=== PATIENT | female | born 2000 | race Caucasian/White ===

== ENCOUNTER 2019-08-27 12:37 | Outpatient (REF) | payer OTHER, SELFPAY ==
[2019-08-29 15:07] LABS: Chlamydia Result Negative (Negative)
[2019-09-01 10:47] LABS: GC Result Negative (Negative)
== END 2019-08-27 12:57 ==
LOC: LBN 12:37
PROVIDERS: PCP Nurse Practitioner Pediatrics; Visit Provider Nurse Practitioner Women's Health
DX: Z11.3 Encounter for screening for infections with a predominantly sexual mode of transmission (principal)
CPT/HCPCS: 87491; 87591

== ENCOUNTER 2020-10-12 11:06 | Outpatient (REF) | payer OTHER, SELFPAY ==
--- NOTE | 2020-10-12 09:15 | PAPFT_PTH ---
PATIENT: Li Almazan LOC: [facility] U#:[id number] AGE/SX: 20/F ROOM: RE10/12/[address]: Yarely Cruz NP : [id number] BED: DIS: 10/12/2020 SPEC #: [id number] RECD: 10/12/20 13:05 STATUS: EMILPatrick REGilmer #: [id number] CRISTINA: 10/12/20 09:[address]: Yarely Cruz NP DEPT: FOR[facility], [facility]–1983 Cytology RECD BY: Claudia Jc ENTERED: 10/12/20 13:06 SP TYPE: PAPFT OTHR DR: JEFFY Dykes Tissues: 1 - CX/ENDOCX FOR PAP SMEARS Procedures: PAP THIN PREP/UVM Screening Comments: [id number] (CHLAMYDIA/GC)
[2020-10-13 14:24] LABS: Chlamydia Result Negative (Negative); GC Result Negative (Negative)
== END 2020-10-12 11:26 ==
LOC: LBN 11:06
PROVIDERS: PCP Nurse Practitioner Pediatrics; Visit Provider Nurse Practitioner Women's Health
DX: Z11.3 Encounter for screening for infections with a predominantly sexual mode of transmission (principal); Z12.4 Encounter for screening for malignant neoplasm of cervix
CPT/HCPCS: 87491; 87591; 88142

== ENCOUNTER 2021-02-25 11:00 | Outpatient (CLI) | payer OTHER, SELFPAY ==
--- NOTE | 2021-02-25 11:00 | RT.EKG_ITS ---
APPROVED REPORT Exam: Resting ECG Reason for Exam: tachycardia Patient Location: O HR:100 bpm ECG Measurements Heart Rate 100 AXIS NJ 119 P 78 QRSd 90 QRS 77 QT 339 T 14 QTc 438 Conclusion Sinus tachycardia...rate> 99
== END 2021-02-25 11:01 | disposition home or self-care (01) ==
LOC: DI.CARD 11:01
PROVIDERS: PCP Nurse Practitioner Pediatrics; Visit Provider Internal Medicine Cardiovascular Disease
DX: R00.0 Tachycardia, unspecified (principal)
CPT/HCPCS: 93010

== ENCOUNTER 2021-03-08 04:17 | Outpatient (CLI) | payer OTHER, SELFPAY ==
--- NOTE | 2021-03-28 09:28 | W.ZIOMONITOR ---
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 ?The patient was in normal sinus rhythm for the majority of the recording with an average heart rate of 71 bpm (44?181) ?There were no episodes of supraventricular tachycardia nor any episodes of ventricular tachycardia. ?There were rare PACs and no PVCs. ?There were no episodes of atrial fibrillation, no pauses greater than 3 seconds and no evidence of high degree heart block. ?There were 4 patient triggered events none of which were associated with arrhythmia.
== END 2021-03-08 04:18 | disposition home or self-care (01) ==
PROVIDERS: PCP Nurse Practitioner Pediatrics; Visit Provider Internal Medicine Cardiovascular Disease
DX: R00.0 Tachycardia, unspecified (principal); Z82.49 Family history of ischemic heart disease and other diseases of the circulatory system
CPT/HCPCS: 93246

== ENCOUNTER 2021-12-07 01:24 | Outpatient (CLI) | payer OTHER, SELFPAY ==
--- NOTE | 2021-12-07 14:47 | DI.US_ITS ---
APPROVED REPORT EXAM: Comprehensive 2D, Doppler, and color-flow Echocardiogram Patient Location: Out-Patient Energy Sales Consultant: Zoila Brown RDCS (AE) Indications: Tachycardia Other Information Study Quality: Excellent Conclusion Normal left ventricular wall thickness and chamber size. Estimated ejection fraction is 70%. Wall m otion is normal Normal right ventricular size and systolic function Both atria are normal in size There are no structural or hemodynamically significant valvular abnormalities Wall motion Left Ventricle The left ventricle is normal size. The left ventricular systolic function is normal. The left ventric ular ejection fraction is within the normal range. There is normal left ventricular wall thickness. T here is normal LV segmental wall motion. There is no ventricular septal defect visualized. LVEF is 70 %. Right Ventricle The right ventricle is normal size. The right ventricular systolic function is normal. The RVSP is 12 .2 mmHg. Atria The left atrium size is normal. The right atrium size is normal. The interatrial septum is intact wit h no evidence for an atrial septal defect. Aortic Valve The aortic valve is normal in structure. There is no aortic valvular stenosis. No aortic regurgitatio n is present. Mitral Valve The mitral valve is normal in structure. No evidence of mitral valve stenosis. Trace mitral regurgita tion. Tricuspid Valve The tricuspid valve is normal in structure. There is no tricuspid valve stenosis. Trace tricuspid reg urgitation. Pulmonic Valve The pulmonary valve is normal in structure. There is no pulmonic valvular stenosis. Trace pulmonic re gurgitation. Great Vessels The aortic root is normal in size. The ascending aorta is normal in size. Aortic arch is normal in ca liber. IVC is normal in size and collapses >50% with inspiration. Pericardium There is no pericardial effusion. 2D Dimensions IVSD d PLAX 0.61 cm F: 0.6-1.0 LV Vol A2C d MOD 73.2 mL LVPW d PLAX 0.63 cm F: 0.6 - 1.0 LV Vol A4C d MOD 47.5 mL LVID d PLAX 4.30 cm F: 3.8 - 5.2 LA vol/ BSA A2C s A-L 26.6 mL/m2 LVDs 2.50 cm F: 2.2 - 3.5 LA vol/ BSA A4C s A-L 13.4 mL/m2 Ao Root d 2.37 cm F: 2.7 - 3.3 LA Vol/ BSA Biplane s A-L 19.1 mL/m2 RA Area A4C 9.15 cm2 LA Area A4C s MOD 11.40 cm2 RA Vol/ BSA A4C s A-L 10.7 mL/m2 LA Area A2C s MOD 15.87 cm2 Ao Asc Diam d 2.32 cm F: 2.3 - 3.1 LV EF A4C MOD 70.6 % LV EF Teichholz 72.3 % LV EF A2C MOD 70.3 % LVEF (Judd's) 70.13 % F: 54 - 74 LV EF Biplane MOD 70.1 % LV Volume 48.45 mL F: 46 - 106 SV 41.74 mL LV Volume Index 30.47 mL/m2 F: 29 - 61 SV Index 26.22 mL/m2 LV Vol Biplane MOD 59.5 mL FS 41.10 % M-Mode TAPSE 2.02 cm (M/F) >1.7 LV Diastology MV E' medial 0.156 (>0.07 m/s) E/A Ratio 1.7 LV E/e MED 8.25 (<14) MV E Vmax 1.29 (0.4-1.3 m/s) MV E' lateral 0.211 (>0.1 m/s) MV A Vmax 0.75 (0.4-1.3 m/s) LV E/e LAT 6.10 (<14) MV E/A Ratio 1.68 MV E/E' medial 8.27 MV E/E' lateral 6.13 Aortic Valve LVOT Area 2.39 cm2 AoV Area Vmax 2.10 cm2 LVOT Vmax 1.65 m/s AoV Area/ BSA (Vmax) 1.32 cm2/m2 LVOT Mean Stephon. 1.37 m/s SERGIO Mean Stephon. 2.30 cm2 LVOT Peak Grad 10.9 mmHg SERGIO Mean Stephon. Index 1.45 cm2/m2 LVOT Mean Grad 8.0 mmHg LVOT VTI 0.351 m LVOT Diam s 1.70 cm AoV Vmax 1.89 m/s Velocity Ratio 0.87 AoV Mean Stephon. 1.42 m/s AoV Peak Grad 14.2 mmHg LVOT SV 84.14 mL AoV Mean Grad 8.7 mmHg AoV VTI 0.348 m AoV Area VTI 2.42 cm2 AoV Area/ BSA (VTI) 1.52 cm/m2 Mitral Valve MV DT 170 (160-240 msec) MV PHT 49 msec MV Area PHT 4.47 cm2 MV VTI 0.389 m MV Area VTI 2.16 (4.0-6.0 cm2) Pulmonary Valve PV Vmax 1.13 (0.5-1.5 m/s) RVOT Peak Gr. 2.75 mmHg PV Peak Grad 5.1 mmHg RVOT Mean Gr. 1.55 mmHg PV Mean Grad 2.8 mmHg RVOT VTI 0.186 m PV VTI 0.218 m RVOT Vmax 0.83 m/s Tricuspid Valve TR Peak Grad 9.1 mmHg TR Vmax 1.52 m/s RA Pressure 3.00 mmHg RVSP (TR) 12.2 mmHg
== END 2021-12-07 01:44 ==
PROVIDERS: PCP Nurse Practitioner Pediatrics; Visit Provider Internal Medicine Cardiovascular Disease
DX: R00.8 Other abnormalities of heart beat (principal)
CPT/HCPCS: 93306

== ENCOUNTER 2024-09-23 12:20 | Outpatient (REF) | payer OTHER, SELFPAY ==
[2024-09-25 12:18] LABS: Chlamydia Result Negative (Negative); GC Result Negative (Negative)
== END 2024-09-23 12:21 | disposition home or self-care (01) ==
LOC: LBN 12:20
PROVIDERS: PCP Family Medicine; Visit Provider Obstetrics & Gynecology
DX: Z30.433 Encounter for removal and reinsertion of intrauterine contraceptive device (principal)
CPT/HCPCS: 87491; 87591

== ENCOUNTER 2024-11-21 07:50 | Outpatient (CLI) | payer OTHER, SELFPAY ==
--- NOTE | 2024-11-21 06:45 | DI.MRI_ITS ---
Exam(s) MR LOWER JOINT LT WO EXAM: MR LOWER JOINT LT WO CLINICAL HISTORY: Possible ACL, meniscus injury,injury downhill skiing,Y93.23. TECHNIQUE: Multiplanar multisequence MRI was performed. COMPARISON: No exams were available for comparison FINDINGS: BONES: There is a fracture involving the posterolateral aspect of the lateral tibial plateau. No sig nificant depression is seen. There is marked marrow edema seen in the proximal and lateral tibia. JOINTS: Articular cartilage is unremarkable. There is a small joint effusion. TENDONS: Extensor mechanism: Unremarkable. Medial retinaculum: Unremarkable. Lateral retinaculum: Unremarkable. Popliteus: Unremarkable. MUSCLES: Unremarkable. MENISCI: The medial meniscus is unremarkable. The lateral meniscus is unremarkable. SOFT TISSUES: There is a popliteal cyst. There is edema seen in the soft tissues adjacent to the cys t which may represent a ruptured cyst. There is a small fluid collection arising from the proximal t ibial fibular joint which may represent a ganglion. LIGAMENTS: Anterior Cruciate: Unremarkable. Posterior Cruciate: Unremarkable. Medial Collateral:Unremarkable. Lateral Collateral: Unremarkable. OTHER: IMPRESSION: 1. There is a nondepressed fracture of the posterior aspect of the lateral tibial plateau with marked marrow edema. 2. No evidence of a meniscal or ligament tear. 3. Small joint effusion. 4. Fluid collection posterior medially consist with a popliteal cyst. There is fluid seen around the cyst suggesting rupture. 5. Small ganglion arising from the proximal tibial fibular joint. DATA REPOSITORY:
== END 2024-11-21 08:10 ==
LOC: DI 07:50
PROVIDERS: PCP Family Medicine; Visit Provider Family Medicine
DX: X58.XXXD Exposure to other specified factors, subsequent encounter (principal); S82.122D Displaced fracture of lateral condyle of left tibia, subsequent encounter for closed fracture with routine healing; M25.462 Effusion, left knee
CPT/HCPCS: 73721

== ENCOUNTER 2024-11-21 09:22 | Outpatient (CLI) | payer OTHER, SELFPAY ==
--- NOTE | 2024-11-21 08:30 | DI.RAD_ITS ---
Exam(s) XR KNEE LT 3V AP,LAT,ONI EXAM: XR KNEE LT 3V AP,LAT,ONI CLINICAL HISTORY: L KNEE INJURY. TECHNIQUE: 2D digital imaging was performed of the left knee. Three images were obtained. AP, late ral and PA tunnel views were obtained. COMPARISON: MR MR LOWER JOINT LT WO from 11/21/2024 FINDINGS: BONES: The posterior lateral tibial plateau fracture is best appreciated on the MRI performed the day. No bony destructive lesion is seen. JOINTS: The knee is normally aligned. There is a small joint effusion. No loose body. SOFT TISSUE: Normal. IMPRESSION: 1. Small joint effusion. 2. Please see the report on the MRI of the left knee performed the same day. DATA REPOSITORY: RADIATION DOSE DELIVERED:
== END 2024-11-21 09:23 | disposition home or self-care (01) ==
LOC: DIORS 09:22
PROVIDERS: PCP Family Medicine; Visit Provider Physician Assistant
DX: S82.122A Displaced fracture of lateral condyle of left tibia, initial encounter for closed fracture (principal); X58.XXXA Exposure to other specified factors, initial encounter
CPT/HCPCS: 73562